=== PATIENT | male | born 1980 | race Caucasian/White ===

== ENCOUNTER 2016-07-13 09:45 | Emergency (ER) | payer MEDICARE, OTHER ==
[~2016-07-13] VITALS: Ht 182.9 cm; Wt 104.3 kg
[2016-07-13] MEDS ORDERED: MORPHINE SULFATE 10 MG/ML VIAL. IM ONE (10:30)
--- NOTE | 2016-07-13 11:07 | RAD ---
EXAM: 1. Right ankle 3 views. 2. Right foot 3 views. HISTORY: Fall with right foot and ankle pain. COMPARISON: None. FINDINGS: There is a nondisplaced lucency along the lateral aspect of the lateral cuneiform, suggesting a nondisplaced fracture. Midfoot alignment is maintained and no additional fractures are seen radiographically. There is soft tissue swelling overlying the lateral malleolus. The joint spaces and alignment of the ankle mortise are maintained. Joint spaces and alignment elsewhere in the foot are also maintained. IMPRESSION: 1. Nondisplaced lucency along the lateral aspect of the lateral cuneiform. If there is pain referring to the midfoot, this is concerning for a nondisplaced fracture. CT of the foot could further evaluate if this remains unclear. 2. Soft tissue swelling at the lateral malleolus is consistent with a soft tissue injury. No fractures at the ankle.
--- NOTE | 2016-07-13 11:27 | PHYS DOC ---
Past Medical History Past Medical History: Anxiety, Bipolar, Depression Additional Past Medical Histor: PTSD, chronic back pain Past Surgical History: Other Additional Past Surgical Histo: hernia Smoking: Chew Alcohol Use: None Drug Use: None Adult General Chief Complaint Chief Complaint: ANKLE PROBLEM HPI HPI Patient is a 36 year old male who presents with right ankle pain after fall at 0930 this morning. The patient was climbing up a deck and fell approximately 3 feet. He has not been able to bear weight since the injury. He denies hitting his head or loss of consciousness. He does not have any other injuries. He is currently visiting from out of town. Review of Systems Review of Systems Constitutional: Denies fever or chills. [] Musculoskeletal: Denies back pain. Reports right ankle pain and swelling. Integument: Denies rash or skin lesions. Reports right ankle ecchymosis. Neurologic: Denies headache, focal weakness or sensory changes. Denies loss of consciousness. Current Medications Current Medications Current Medications Medications (Trade) Dose Ordered Sig/Madeline Start Time Stop Time Status Last Admin Dose Admin Morphine Sulfate 5 mg 1X ONCE 07/13/16 10:30 07/13/16 10:31 DC 07/13/16 10:32 5 MG Allergies Allergies Allergies Coded Allergies Type Severity Reaction Last Updated Verified ketorolac Adverse Reaction Unknown paranoia 07/13/16 Yes Physical Exam Physical Exam Constitutional: Well developed, well nourished, no acute distress, non-toxic appearance. [] HENT: Normocephalic, atraumatic, oropharynx moist. [] Eyes: PERRLA, EOMI, conjunctiva normal, no discharge. [] Neck: Normal range of motion, no tenderness, supple, no stridor. [] Skin: Warm, dry, no erythema, no rash. There is ecchymosis of the right ankle diffusely with edema. Back: No midline tenderness, no CVA tenderness. [] Extremities: Diffuse right ankle and right foot tenderness, ROM significantly decreased due to pain, moderate right ankle edema. 2+ pedal pulses. Less than 2 second capillary refill in the toes. Light touch sensation intact in the toes. There is no tenderness over the proximal fibula. Neurologic: Alert and oriented X 3, normal motor function, normal sensory function, no focal deficits noted. [] Psychologic: Affect normal, judgement normal, mood normal. [] Current Patient Data Vital Signs Vital Signs Date Time Temp Pulse Resp B/P Pulse Ox O2 Delivery O2 Flow Rate FiO2 07/13/16 10:06 98.4 95 28 100 Room Air 98.4 EKG EKG [] Radiology/Procedures Radiology/Procedures REASON: fall ~3feet, twisted ankle PROCEDURE: ANKLE RIGHT 3V; FOOT RIGHT 3V EXAM: 1. Right ankle 3 views. 2. Right foot 3 views. HISTORY: Fall with right foot and ankle pain. COMPARISON: None. FINDINGS: There is a nondisplaced lucency along the lateral aspect of the lateral cuneiform, suggesting a nondisplaced fracture. Midfoot alignment is maintained and no additional fractures are seen radiographically. There is soft tissue swelling overlying the lateral malleolus. The joint spaces and alignment of the ankle mortise are maintained. Joint spaces and alignment elsewhere in the foot are also maintained. IMPRESSION: 1. Nondisplaced lucency along the lateral aspect of the lateral cuneiform. If there is pain referring to the midfoot, this is concerning for a nondisplaced fracture. CT of the foot could further evaluate if this remains unclear. 2. Soft tissue swelling at the lateral malleolus is consistent with a soft tissue injury. No fractures at the ankle. Course & Med Decision Making Course & Med Decision Making Pertinent Labs and Imaging studies reviewed. (See chart for details) Patient presents with right ankle and foot pain after fall this morning. On exam , he is neurovascularly intact without evidence of compartment syndrome. X-ray shows a possible nondisplaced fracture of the lateral cuneiform. The patient is placed in an Ortho-Glass stirrup splint by assistive technology specialist. I examined the patient after splint application and he remains neurovascularly intact without evidence of compartment syndrome. He is provided with crutches at discharge and is instructed to remain nonweightbearing until follow-up with orthopedics. He has an orthopedic doctor whom he is currently seeing for previous injury that he will call for follow-up when he returns home. He is discharged home with prescription for [place]. Return precautions were discussed. He verbalizes understanding and agrees with plan. Dragon Disclaimer Dragon Disclaimer This electronic medical record was generated, in whole or in part, using a voice recognition dictation system. Departure Departure Impression: Primary Impression: Fracture of lateral cuneiform bone of right foot Disposition: HOME, SELF-CARE Condition: STABLE Referrals: SEVERIANO LARSEN MD Patient Instructions: Cast or Splint Care, [id number], Crutch Use, Easy-to- Read, Foot Fracture-Brief Additional Instructions: You have a probable fracture, or broken bone, of the lateral cuneiform bone in your foot. You have been placed in a splint to keep the foot and ankle immobilized. The splint must stay dry in order to keep its form. Please use the provided crutches for assistance with ambulation. Do not bear weight on the right foot. Please take the prescribed pain medication as instructed. Do not drive or operate heavy machinery while taking pain medication. Please follow-up with your orthopedic doctor when you return home or the orthopedic doctor listed below. Return to the emergency department if you have any new or concerning symptoms. Scripts Hydrocodone/Apap 5-325 ([place] 5-325 Tablet)1 Each Tablet1 Tab PO PRN Q6HRS PRN PAIN #20 TAB Prov:ANA VERA 07/13/16 Problem Qualifiers Primary Impression: Fracture of lateral cuneiform bone of right foot Encounter type: initial encounter Fracture type: closed Fracture alignment : nondisplaced Qualified Code: S92.224A - Nondisplaced fracture of lateral cuneiform of right foot, initial encounter for closed fracture ANA VERA Jul 13, 2016 11:27
[2016-07-13] MEDS ORDERED: HYDR-971 PO (11:48)
[2016-07-13 12:27] VITALS: BP 123/88
== END 2016-07-13 12:27 | disposition home or self-care (01) ==
LOC: ER 09:45
DX: S92.224A Nondisplaced fracture of lateral cuneiform of right foot, initial encounter for closed fracture (principal); X58.XXXA Exposure to other specified factors, initial encounter; Y93.89 Activity, other specified; Y99.8 Other external cause status; Y92.89 Other specified places as the place of occurrence of the external cause
CPT/HCPCS: 29515; 73610; 73630; 96372; 99284; J2270; 99283-25